=== PATIENT | male | born 1970 | race Caucasian/White ===

== ENCOUNTER 2022-04-18 13:30 | Emergency (ER) | payer OTHER ==
[2022-04-18] MEDS ORDERED: NA CHLORIDE 0.9% 1,000 ML ONE ×2 (13:59→15:27)
[2022-04-18] MEDS ORDERED: ONDANSETRON 4 MG/2 ML VIAL ONE (13:59)
[2022-04-18] MEDS ORDERED: NA CHLORIDE 0.9% 250 ML ONE (13:59)
[2022-04-18] MEDS ORDERED: PANTOPRAZOLE 40 MG INJ ONE (13:59)
--- NOTE | 2022-04-18 14:16 | RAD REPORT ---
EXAM DESCRIPTION: RAD - Chest Single View - 04/18/2022 2:10 pm CLINICAL HISTORY: ABDOMINAL DISTENTION COMPARISON: No comparisons FINDINGS: Lines: Right IJ approach Port-A-Cath. Lungs: Pulmonary opacities are present bilaterally, right greater than left. These are ill-defined. Pleural: No significant pleural effusions or pneumothorax. Cardiac: The heart size is within normal limits. Bones: No acute fractures. Other: IMPRESSION: Ill-defined bilateral opacities could reflect metastatic disease. Pneumonia, particularl y at the right lung base is difficult to exclude without priors for comparison.
[2022-04-18 14:19] LABS: Absolute Lymphocytes (CBC) 0.8 K/uL (0.7-4.9); Hematocrit 33.3 % (39.6-49.0); Lymphocytes % 6.2 % (15.3-44.8); MPV 8.5 fL (7.6-11.3); RBC Red Blood Cell Count 3.81 M/uL (4.33-5.43)
[2022-04-18 14:38] LABS: Albumin 2.3 g/dL (3.4-5.0); Bilirubin Direct 0.3 mg/dL (0-0.2); Bilirubin Total 0.7 mg/dL (0.2-1.0); Potassium 3.1 mmol/L (3.5-5.1); Protein, Total 6.1 g/dL (6.4-8.2); Troponin High Sensitivity 8.3 pg/mL (<58.9)
[2022-04-18 14:54] LABS: Protime INR 1.04
[2022-04-18] MEDS ORDERED: KCL 20 MEQ/100 mL IVPB 100 ML IV ONE (15:20)
--- NOTE | 2022-04-18 15:27 | RAD REPORT ---
EXAM DESCRIPTION: CTChest Abdomen Pelvis W Cont - 04/18/2022 3:10 pm CLINICAL HISTORY: vomiting COMPARISON: No comparisons TECHNIQUE: CT of the chest, abdomen, and pelvis was performed with contrast. All CT scans are performed using dose optimization technique as appropriate and may include automated exposure control or mA/KV adjustment according to patient size. FINDINGS: Thorax: Chest Wall: No abnormal mass Lungs: Multiple pulmonary nodules are identified. These likely reflect metastatic disease. The larges t on the left is a cavitary nodule measuring 2.9 cm. The largest on the right is in the right lower l obe and measures 2.6 cm. Pleura: Loculated right pleural fluid. Small left pleural effusion. Crystal/Mediastinum: No lymphadenopathy. Esophageal wall thickening along the mid and distal esophagus. Aorta/Pulmonary Arteries: Unremarkable Heart: Normal size. Abdomen/Pelvis: Liver: Hepatic steatosis. Pneumobilia is noted. Low-density lesion in the right hepatic lobe measurin g 5 millimeters. Biliary: Biliary stent present. Stomach: No significant focal abnormality. Duodenum: No significant focal abnormality. Pancreas: Severely atrophic pancreas. Spleen: No significant abnormality. Adrenal: No suspicious lesions. Kidney/ureter: 3 mm stone in the right kidney. Mild bilateral hydronephrosis. Retroperitoneum: No retroperitoneal adenopathy. Vascular: No aneurysm. Atherosclerosis. Bowel: Moderate rectal stool burden. Irregular thickening at the sigmoid colon, possibly due to infla mmation or underlying neoplasm. . .. Peritoneum: Large volume of ascites. Omental nodularity. Bladder: Grossly unremarkable. Reproductive: No adnexal masses. Bones: Mixed lytic and sclerotic lesion in the left hemipelvis. Other sclerotic lesions noted. This i s consistent with metastatic disease. Thoracic and lumbar compression fractures. None are clearly acu te. Remote sternal fracture. Other: n/a IMPRESSION: 1. Large volume of presumably malignant ascites with evidence of peritoneal carcinomatos is. This is presumably related to the patient's reported pancreatic neoplasm. There are also pulmonar y nodules bilaterally that are consistent with metastatic disease. 2. Irregular thickening at the sigmoid colon which is not well assessed. Inflammatory changes versus neoplasm. Colonoscopy could better evaluate when the patient's condition permits. 3. Loculated right pleural effusion which is likely malignant. Small left effusion, also likely malig nant. 4. Moderate rectal stool burden. 5. Bilateral hydronephrosis which may be a manifestation of increased intra-abdominal pressure from t he degree of ascites.
--- NOTE | 2022-04-18 15:42 | ER ---
Nurse's Notes [facility] Name: Brandon Florez Age: 51 yrs Sex: Male : 1970 Arrival Date: 04/18/2022 Time: 13:32 Bed 5 Private MD: Diagnosis: Hematemesis Presentation: 04/18 13:00 Chief complaint: EMS states: coffee ground emesis x5 days. Coronavirus screen: Vaccine jg9 status:. Coronavirus screen: Vaccine status: Patient reports receiving the 2nd dose of the covid vaccine. patient reports being vaccinated. Ebola Screen: Patient negative for fever greater than or equal to 101.5 degrees Fahrenheit, and additional compatible Ebola Virus Disease symptoms Patient denies exposure to infectious person. Patient denies travel to an Ebola-affected area in the 21 days before illness onset. Initial Sepsis Screen: Does the patient meet any 2 criteria? No. Patient's initial sepsis screen is negative. Does the patient have a suspected source of infection? No. Patient's initial sepsis screen is negative. Risk Assessment: Do you want to hurt yourself or someone else? Patient reports no desire to harm self or others. Onset of symptoms is unknown. 13:00 Method Of Arrival: EMS: [facility] jg9 13:00 Acuity: BEBA 3 jg9 Triage Assessment: 13:00 General: Appears uncomfortable, Behavior is calm, cooperative. Pain: Complains of pain jg9 in abdomen. EENT: No deficits noted. Neuro: No deficits noted. Cardiovascular: No deficits noted. Respiratory: No deficits noted. GI: Abdomen is flat, Pt is actively vomiting Bowel sounds diminished in right upper quadrant, left upper quadrant, right lower quadrant and left lower quadrant Abd is soft X 4 quads Abdomen is tender to palpation X 4 quads. Reports lower abdominal pain, upper abdominal pain, diarrhea, nausea, vomiting. : No deficits noted. Derm: No deficits noted. Musculoskeletal: No deficits noted. Historical: - Allergies: 13:43 cornbread; jg9 13:43 PENICILLINS; jg9 - PMHx: 13:43 Malignant neoplasm of brain; epilepsy and recurrent seizures; pleural effusion; jg9 Cataract; malignant neoplasm of pancreas; Osteoarthritis; - Immunization history:: Adult Immunizations up to date. - Social history:: Smoking status: Patient/guardian denies using tobacco, the patient reports quitting approximately 5 years ago. Screenin:48 Abuse screen: Denies threats or abuse. Denies injuries from another. Nutritional jg9 screening: patient appears emaciated. Tuberculosis screening: No symptoms or risk factors identified. Fall Risk Fall in past 12 months (25 points). Assessment: 14:43 Reassessment: No changes from previously documented assessment. Patient and/or family jg9 updated on plan of care and expected duration. Pain level reassessed. Patient is alert, oriented x 3, equal unlabored respirations, skin warm/dry/pink. 15:14 Reassessment: Patient appears in no apparent distress at this time. Patient and/or jd3 family updated on plan of care and expected duration. Pain level reassessed. Patient is alert, oriented x 3, equal unlabored respirations, skin warm/dry/pink. pt returned from CT. 15:31 GI: Reports nausea. jg9 16:46 Reassessment: report called to Maria Antonia MOSCOSO, at [facility]. jg9 Vital Signs: 13:00 BP 95 / 73; Pulse 87; Resp 20; Temp 98.1(O); Pulse Ox 99% ; Weight 70.31 kg (R); Height jg9 6 ft. 1 in. (185.42 cm); Pain 0/10; 13:35 BP 93 / 76; Pulse 88; Resp 17; Pulse Ox 98% on R/A; jg9 15:14 BP 102 / 76; Pulse 87; Resp 18 S; Pulse Ox 100% on R/A; jd3 16:30 BP 100 / 73; Pulse 77; Resp 15; Pulse Ox 100% ; jg9 17:00 BP 113 / 81; Pulse 70; Resp 19 S; Pulse Ox 95% on R/A; jg9 13:00 Body Mass Index 20.45 (70.31 kg, 185.42 cm) jg9 ED Course: 13:32 Patient arrived in ED. bd 13:33 Esteban Moss PA is PHCP. cp 13:33 Richie West MD is Attending Physician. cp 13:38 Tracy Teran, BLANKA is Primary Nurse. jg9 13:43 Triage completed. jg9 13:49 Arm band placed on right wrist. jg9 13:49 Patient has correct armband on for positive identification. Bed in low position. Call jg9 light in reach. Side rails up X 1. Security at bedside. 14:00 Inserted saline lock: 18 gauge in left forearm, using aseptic technique. jg9 14:12 XRAY Chest (1 view) In Process Unspecified. EDMS 14:13 EKG done, by ED staff, reviewed by Esteban HERMOSILLO. mb7 14:20 Inserted saline lock: 18 gauge in right forearm, using aseptic technique. jg9 15:12 CT Chest, Abdomen, Pelvis - W/Contrast In Process Unspecified. EDMS 15:31 No apparent distress. Resting quietly. jg9 15:53 initiated transfer to [facility] care in [place]. bd 16:46 No apparent distress. Resting quietly. jg9 17:38 No provider procedures requiring assistance completed. jg9 17:38 Patient transferred, IV remains in place. jg9 Administered Medications: 14:23 Drug: ProTONIX (pantoprazole) 40 mg Route: IVP; Site: right forearm; j9 15:00 Follow up: Response: No adverse reaction j9 14:23 Drug: Zofran (Ondansetron) 4 mg Route: IVP; Site: right forearm; jg9 15:00 Follow up: Response: No adverse reaction; Nausea is decreased j9 14:51 Drug: NS 0.9% (30 ml/kg) 30 ml/kg Route: IV; Rate: bolus; Site: right forearm; jg9 17:30 Follow up: Response: No adverse reaction; IV Status: Infusion continued upon transfer jl7 15:15 Drug: ProTONIX (pantoprazole) 8 mg/hr Route: IV; Rate: 25 ml/hr; Site: left forearm; jg9 17:37 Follow up: IV Status: Completed infusion; IV Intake: 250ml j9 15:28 Drug: Potassium Chloride 20 mEq Route: IV; Rate: calculated rate; Site: right forearm; jg9 17:29 Follow up: IV Status: Completed infusion; IV Intake: 100ml j9 16:45 Drug: Octreotide Infusion (50 mcg/hr) - (Octreotide 500 mcg, NS 0.9% 500 ml) Route: IV; jg9 Rate: 50 ml/hr; Site: left forearm; 17:30 Follow up: Response: No adverse reaction; IV Status: Infusion continued upon transfer jl7 16:45 Drug: Octreotide 50 mcg Route: IV; Rate: calculated rate; Site: left forearm; jg9 16:47 Follow up: IV Status: Completed infusion jl7 17:29 Follow up: Response: No adverse reaction jg9 17:24 Drug: Rocephin - (cefTRIAXone) 1 grams Route: IVPB; Infused Over: 30 mins; Site: right jg9 forearm; 17:36 Follow up: IV Status: Completed infusion; IV Intake: 50ml jg9 Medication: 13:49 VIS not applicable for this client. jg9 Intake: 17:29 IV: 100ml; Total: 100ml. jg9 17:36 IV: 50ml; Total: 150ml. jg9 17:37 IV: 250ml; Total: 400ml. jg9 Outcome: 15:42 ER care complete, transfer ordered by . cp 17:38 Transferred by ground EMS to [facility]. jg9 17:38 Condition: stable 17:39 Patient left the ED. jg9 Signatures: Dispatcher [employer] EDMS Leona Peter Corey, PA PA cp Leal, Jahala, RN RN wanda7 Jarod Mayorga RN RN jd3 Karla [facility] AlabamaTracy Mckoy RN RN jg9
--- NOTE | 2022-04-18 15:42 | EDPHYS ---
Physician Documentation [facility] Name: Brandon Florez Age: 51 yrs Sex: Male : 1970 Arrival Date: 04/18/2022 Time: 13:32 Bed 5 Private MD: ED Physician Richie West HPI: 04/18 13:40 This 51 yrs old Male presents to ER via EMS with complaints of Vomiting - coffee ground cp emesis reported x5 days, 1 episode of diarrhea on 04/17/22, hx of lung, brain and pancreatic cancer. 13:40 The patient presents to the emergency department with nausea, that is severe, vomiting, cp that is continuous, described as coffee ground in nature, diarrhea, 1 times today, abdominal pain. Onset: The symptoms/episode began/occurred yesterday. 13:40 Possible causes: flare up of bowel problem, history of pancreatic cancer, currently cp receiving chemo with last dose last month. Associated signs and symptoms: Pertinent negatives: constipation, fever. Severity of symptoms: in the emergency department the symptoms are unchanged despite home interventions. Historical: - Allergies: 13:43 cornbread; jg9 13:43 PENICILLINS; jg9 - PMHx: 13:43 Malignant neoplasm of brain; epilepsy and recurrent seizures; pleural effusion; jg9 Cataract; malignant neoplasm of pancreas; Osteoarthritis; - Immunization history:: Adult Immunizations up to date. - Social history:: Smoking status: Patient/guardian denies using tobacco, the patient reports quitting approximately 5 years ago. ROS: 13:45 Constitutional: Positive for poor PO intake, Negative for body aches, chills, fever. cp 13:45 Eyes: Negative for injury, pain, redness, and discharge. cp 13:45 ENT: Negative for drainage from ear(s), ear pain, sore throat, difficulty swallowing, difficulty handling secretions. 13:45 Cardiovascular: Negative for chest pain, palpitations. 13:45 Respiratory: Negative for cough, shortness of breath, wheezing. 13:45 Abdomen/GI: Positive for abdominal pain, diarrhea, abdominal distension, hematemesis, Negative for black/tarry stool, rectal bleeding. 13:45 Neuro: Negative for altered mental status, headache, loss of consciousness, syncope, weakness. 13:45 All other systems are negative. Exam: 13:50 Constitutional: The patient appears in no acute distress, alert, awake, cp non-diaphoretic, non-toxic, well developed, well nourished. 13:50 Head/Face: Normocephalic, atraumatic. cp 13:50 Eyes: Periorbital structures: appear normal, Pupils: equal, round, and reactive to light and accomodation, Extraocular movements: intact throughout, Conjunctiva: normal, no exudate, no injection, Sclera: no appreciated abnormality, Lids and lashes: appear normal, bilaterally. 13:50 ENT: External ear(s): are unremarkable, Nose: is normal, Mouth: Lips: moist, Oral mucosa: pink and intact, moist, Posterior pharynx: Airway: no evidence of obstruction, patent. 13:50 Neck: ROM/movement: is normal, is supple, without pain, no range of motions limitations, no meningismus. 13:50 Chest/axilla: Inspection: normal, Palpation: is normal, no crepitus, no tenderness. 13:50 Cardiovascular: Rate: normal, Rhythm: regular. 13:50 Respiratory: the patient does not display signs of respiratory distress, Respirations: normal, no use of accessory muscles, no retractions, labored breathing, is not present, Breath sounds: are clear throughout, no decreased breath sounds, no stridor, no wheezing. 13:50 Abdomen/GI: Inspection: distension, that is moderate, Bowel sounds: active, all quadrants, Palpation: soft, in all quadrants, moderate abdominal tenderness, in the epigastric area, right upper quadrant and left upper quadrant, rebound tenderness, is not appreciated, involuntary guarding, is not appreciated. 13:50 Back: CVA tenderness, is absent. 13:50 Neuro: Orientation: to person, place \\T\\ time. Mentation: is normal. 14:11 ECG was reviewed by the Attending Physician. cp Vital Signs: 13:00 BP 95 / 73; Pulse 87; Resp 20; Temp 98.1(O); Pulse Ox 99% ; Weight 70.31 kg (R); Height jg9 6 ft. 1 in. (185.42 cm); Pain 0/10; 13:35 BP 93 / 76; Pulse 88; Resp 17; Pulse Ox 98% on R/A; jg9 15:14 BP 102 / 76; Pulse 87; Resp 18 S; Pulse Ox 100% on R/A; jd3 16:30 BP 100 / 73; Pulse 77; Resp 15; Pulse Ox 100% ; jg9 17:00 BP 113 / 81; Pulse 70; Resp 19 S; Pulse Ox 95% on R/A; jg9 13:00 Body Mass Index 20.45 (70.31 kg, 185.42 cm) jg9 MDM: 13:38 Patient medically screened. cp 15:35 Data reviewed: vital signs, nurses notes, lab test result(s), EKG, radiologic studies, cp CT scan, plain films, I have discussed the patient's presentation/case with the attending Emergency Department Physician; and as a result, I will transfer patient as he is a prisoner. 15:40 Test interpretation: by ED physician or midlevel provider: ECG, plain radiologic cp studies. Counseling: I had a detailed discussion with the patient and/or guardian regarding: the historical points, exam findings, and any diagnostic results supporting the discharge/admit diagnosis, lab results, radiology results, the need to transfer to another facility. 15:40 Response to treatment: the patient's symptoms have markedly improved after treatment. cp 16:25 Physician consultation: was contacted at 16:20, regarding regarding transfer, to [facility]. cp accepting physician will be DR Costa. 04/18 13:37 Order name: Basic Metabolic Panel; Complete Time: 14:48 cp 04/18 14:49 Interpretation: Normal except: NA 134; K 3.1; CL 91; GLUC 123; CA 8.2. cp 04/18 13:37 Order name: CBC with Diff 04/18 14:49 Interpretation: Normal except: WBC 13.5; RBC 3.81; HGB 10.6; HCT 33.3; MCHC 31.8; RDW cp 16.4; KURT% 84.3; LYM% 6.2; NEUT A 11.4. 04/18 13:37 Order name: LFT's; Complete Time: 14:48 cp 04/18 14:49 Interpretation: Normal except: ALK 224; BILID 0.3; TP 6.1; ALB 2.3; GLOB 3.8; A/G 0.6. cp 04/18 13:37 Order name: Magnesium; Complete Time: 14:48 cp 04/18 13:37 Order name: NT PRO-BNP; Complete Time: 14:48 cp 06/15 13:37 Order name: PT-INR; Complete Time: 15:27 cp /15 13:37 Order name: Troponin HS; Complete Time: 14:48 cp /15 13:37 Order name: Lipase; Complete Time: 14:48 cp / 13:37 Order name: Lactate; Complete Time: 15:27 cp /15 13:37 Order name: Procalcitonin; Complete Time: 15:27 cp /15 15:27 Interpretation: Procalcitonin 0.17; Reviewed. cp 04/18 13:37 Order name: Blood Culture Adult (2) cp 04/18 13:37 Order name: Ptt, Activated; Complete Time: 15:27 cp 04/18 13:37 Order name: COVID-19 SARS RT PCR (Document "Date of Onset" if Symptomatic); Complete cp Time: 16:12 /15 13:37 Order name: Type And Screen; Complete Time: 15:27 cp 04/18 13:37 Order name: XRAY Chest (1 view); Complete Time: 14:48 cp 15 14:50 Interpretation: Report review. cp 04/18 13:37 Order name: EKG; Complete Time: 13:38 cp 04/18 13:37 Order name: Cardiac monitoring; Complete Time: 14:07 cp 04/18 14:51 Order name: CT Chest, Abdomen, Pelvis - W/Contrast; Complete Time: 15:33 cp /15 15:36 Order name: Urine Microscopic Only; Complete Time: 17:13 cp /15 17:13 Interpretation: Normal except: URBC 10-20; SQEPI 5-10. cp /15 16:02 Order name: Urine Dipstick-Ancillary; Complete Time: 16:12 EDMS /15 16:44 Order name: ABO/RH no charge; Complete Time: 17:13 EDMS /15 13:37 Order name: EKG - Nurse/Tech; Complete Time: 14:13 cp /15 13:37 Order name: IV Saline Lock; Complete Time: 14:07 cp 04/18 13:37 Order name: Labs collected and sent; Complete Time: 14:07 cp 04/18 13:37 Order name: O2 Per Protocol; Complete Time: 14:07 cp 04/18 13:37 Order name: O2 Sat Monitoring; Complete Time: 14:07 cp 04/18 14:20 Order name: Misc. Order: please remove handcuffs; Complete Time: 14:50 cp 04/18 15:36 Order name: Urine Dipstick-Ancillary (obtain specimen); Complete Time: 16:45 cp EC:11 Rate is 81 beats/min. Rhythm is regular. VT interval is normal. QRS interval is normal. cp QT interval is normal. Interpreted by me. Reviewed by me. Administered Medications: 14:23 Drug: ProTONIX (pantoprazole) 40 mg Route: IVP; Site: right forearm; j9 15:00 Follow up: Response: No adverse reaction 9 14:23 Drug: Zofran (Ondansetron) 4 mg Route: IVP; Site: right forearm; j9 15:00 Follow up: Response: No adverse reaction; Nausea is decreased 9 14:51 Drug: NS 0.9% (30 ml/kg) 30 ml/kg Route: IV; Rate: bolus; Site: right forearm; j9 17:30 Follow up: Response: No adverse reaction; IV Status: Infusion continued upon transfer [facility] 15:15 Drug: ProTONIX (pantoprazole) 8 mg/hr Route: IV; Rate: 25 ml/hr; Site: left forearm; jg9 17:37 Follow up: IV Status: Completed infusion; IV Intake: 250ml j9 15:28 Drug: Potassium Chloride 20 mEq Route: IV; Rate: calculated rate; Site: right forearm; jg9 17:29 Follow up: IV Status: Completed infusion; IV Intake: 100ml 9 16:45 Drug: Octreotide Infusion (50 mcg/hr) - (Octreotide 500 mcg, NS 0.9% 500 ml) Route: IV; jg9 Rate: 50 ml/hr; Site: left forearm; 17:30 Follow up: Response: No adverse reaction; IV Status: Infusion continued upon transfer [facility] 16:45 Drug: Octreotide 50 mcg Route: IV; Rate: calculated rate; Site: left forearm; jg9 16:47 Follow up: IV Status: Completed infusion 7 17:29 Follow up: Response: No adverse reaction 9 17:24 Drug: Rocephin - (cefTRIAXone) 1 grams Route: IVPB; Infused Over: 30 mins; Site: right jg9 forearm; 17:36 Follow up: IV Status: Completed infusion; IV Intake: 50ml jg9 Disposition: 17:41 Co-signature as Attending Physician, Richie West MD I agree with the assessment and kdr plan of care. Disposition Summary: 04/18/22 15:42 Transfer Ordered Transfer Location: [facility] cp Reason: Higher level of care cp Condition: Stable cp Problem: new cp Symptoms: have improved cp Accepting Physician: DR Costa(04/18/22 17:39) jg9 Diagnosis - Hematemesis cp Forms: - Medication Reconciliation Form cp - SBAR form cp Signatures: Dispatcher [employer] EDMS Richie West MD MD kdr Esteban Moss PA PA cp Tracy Teran RN RN jg9 Yvonne Peterson RN jl7 Corrections: (The following items were deleted from the chart) 14:56 13:57 Abdomen Pelvis W Con+CT.RAD.BRZ ordered. EDTX EDTX 16:18 15:42 Doctor cp cp 17:39 16:18 DR Costa cp jg9 04/19 16:25 04/18 15:35 Data reviewed: vital signs, nurses notes, lab test result(s), EKG, cp radiologic studies, CT scan, plain films, I have discussed the patient's presentation/case with the attending Emergency Department Physician; and as a result, I will transfer patient, cp
[2022-04-18] MEDS ORDERED: OCTREOTIDE ACETATE 100 MCG/ML ONE ×2 (15:54→17:28)
[2022-04-18] MEDS ORDERED: NA CHLORIDE 0.9% 500 ML ONE (15:54)
[2022-04-18] MEDS ORDERED: OCTREOTIDE 500 MCG in NA CHLORIDE 0.9% 500 ML IV SCH (16:00)
[2022-04-18 16:01] LABS: Urine Blood 2+ (Negative); Urine Glucose Negative (Negative); Urine Protein 1+ (Negative); Urine Specific Gravity 1.025 (1.005-1.030)
[2022-04-18 16:32] LABS: Urine Amorphous Sediment 1+ /HPF (NONE SEEN); Urine Bacteria <20 /HPF (NONE SEEN); Urine Mucus 1+ /HPF (NONE SEEN)
[2022-04-18] MEDS ORDERED: CEFTRIAXONE 1000 MG/VIAL ONE (17:27)
[2022-04-18 17:56] VITALS: BP 113/81; O2SAT 95
[2022-04-18 18:54] LABS: Blood Morphology Comment NOT SEEN (NOT SEEN); Platelet Estimate ADEQ; White Blood Cell Scan OK (OK)
--- NOTE | 2022-04-19 15:30 | EKG ---
Test Date: 2022-04-18 Test Time: 14:05:47 [employer] Driver: MB MEASUREMENT RESULTS: Intervals: Rate: 81 ME: 118 QRSD: 78 QT: 426 QTc: 494 [place]: P: 25 ME: 118 QRS: -6 T: 45 INTERPRETIVE STATEMENTS: Normal sinus rhythm Nonspecific T wave abnormality Abnormal ECG No previous ECG available for comparison Electronically Signed On 04-19-22 15:27:43 CDT by Afshin Morales
== END 2022-04-18 17:39 | disposition short-term general hospital (02) ==
LOC: ER 13:30
DX: K92.0 Hematemesis (principal); C71.9 Malignant neoplasm of brain, unspecified; C25.9 Malignant neoplasm of pancreas, unspecified; Z88.0 Allergy status to penicillin; Z91.018 Allergy to other foods; Z20.822 Contact with and (suspected) exposure to COVID-19
CPT/HCPCS: 93005; 87040 ×2; 85025; 80048; 36415; 86900; 83735; 86850; 85610; 86901; 80076; 83605; 85730; 84484; 83690; 84145; 83880; 71260; 74177; 71045; 99285; U0003; Q9967; J2354 ×2; J3480; J2405; 81003; 81015; C9113; J7030; J7040; J7050